=== PATIENT | male | born 1950 | race Hispanic/Latino ===

== ENCOUNTER 2019-09-26 12:54 | Emergency (ER) | payer MEDICARE, OTHER ==
[~2019-09-26] VITALS: Ht 167.6 cm; Wt 83.9 kg
[~2019-09-26 12:54] MED LIST: BACTRIM DS TAB1 EACH PO; CIPRO500 MG PO; IBUPROFEN400 MG PO; LISINOPRIL10 MG PO; LOVASTATIN10 MG PO; TAMSULOSIN HCL0.4 MG PEG
[2019-09-26 14:33] LABS: BASOPHILS # (AUTO) 0.1 (0.0-0.1); BASOPHILS % 0.7 % (0.0-1.0); EOSINOPHILS # (AUTO) 0.2 (0.0-0.4); EOSINOPHILS % 1.3 % (0.0-6.0); HEMATOCRIT 35.4 % (38.2-49.6); HEMOGLOBIN 11.9 g/dL (14.0-18.0); LYMPHOCYTES # (AUTO) 2.3 (1.0-3.2); LYMPHOCYTES % 18.2 % (18.0-39.1); MEAN CORPUSCULAR HEMOGLOBIN 29.3 pg (28-32); MEAN CORPUSCULAR HGB CONC 33.6 g/dL (31-35); MEAN CORPUSCULAR VOLUME 87.2 fL (81-99); MONOCYTES # (AUTO) 0.9 (0.2-0.8); MONOCYTES % 6.8 % (4.4-11.3); NEUTROPHILS # (AUTO) 9.2 (2.1-6.9); NEUTROPHILS % 72.7 % (38.7-80.0); PLATELET COUNT 181 x10e3/uL (140-360); RED BLOOD COUNT 4.06 x10e6/uL (4.3-5.7); RED CELL DISTRIBUTION WIDTH 13.2 % (11.7-14.4)
--- NOTE | 2019-09-26 14:33 | Diagnostic Imaging Report ---
EXAMINATION: CHEST SINGLE (PORTABLE) INDICATION: Chest pain COMPARISON: None FINDINGS: LINES/TUBES:EKG leads overlie the chest. LUNGS:The lungs are well-inflated. No focal consolidation or pulmonary edema. PLEURA:No pleural effusion or pneumothorax. MEDIASTINUM:The cardiomediastinal silhouette appears normal in size and shape. Atherosclerotic calcifications of the thoracic aorta. BONES/SOFT TISSUES:No acute osseous injury. ABDOMEN:No free air under the diaphragm. IMPRESSION: No focal pneumonia or pulmonary edema. Signed by: Camilo Morris MD on 09/26/2019 2:30 PM
[2019-09-26 14:47] LABS: ALANINE AMINOTRANSFERASE 19 IU/L (0-55); ALBUMIN/GLOBULIN RATIO 1.4 (0.8-2.0); ALKALINE PHOSPHATASE 67 IU/L (40-150); ANION GAP 13.3 mmol/L (8-16); BLOOD UREA NITROGEN 12 mg/dL (7-26); BUN/CREATININE RATIO 16 (6-25); CARBON DIOXIDE 23 mmol/L (22-29); CHLORIDE 108 mmol/L (98-107); CREATINE KINASE 153 IU/L (30-200); CREATININE, SERUM 0.77 mg/dL (0.72-1.25); EST GLOMERULAR FILTRATION RATE > 60 ML/MIN (60-); GLUCOSE 85 mg/dL (74-118); POTASSIUM 3.3 mmol/L (3.5-5.1); SODIUM 141 mmol/L (136-145)
[2019-09-26] MEDS ORDERED: FAMOTIDINE20 MG PO (15:34)
[2019-09-26] MEDS ORDERED: OMEPRAZOLE40 MG PO (15:34)
[2019-09-26] MEDS ORDERED: MAALOX MAXIMUM355 ML PO (15:34)
[2019-09-26] MEDS ORDERED: ZOFRAN4 MG SL (15:34)
== END 2019-09-26 15:46 | disposition home or self-care (01) ==
LOC: ER 12:54
DX: R07.89 Other chest pain (principal); K21.0 Gastro-esophageal reflux disease with esophagitis; I10 Essential (primary) hypertension; E78.5 Hyperlipidemia, unspecified
CPT/HCPCS: 36415; 71045; 80053; 82550; 82553; 84484; 85025; 93005; 99284

== ENCOUNTER → 2024-12-05 | Day surgery (SDC) | payer OTHER ==
[2024-12-01 11:43] LABS: BASOPHILS # (AUTO) 0.1 (0.0-0.1); BASOPHILS % 1.7 % (0.0-1.0); EOSINOPHILS # (AUTO) 0.4 (0.0-0.4); EOSINOPHILS % 5.6 % (0.0-6.0); HEMATOCRIT 35.2 % (38.2-49.6); HEMOGLOBIN 10.5 g/dL (14.0-18.0); LYMPHOCYTES # (AUTO) 1.8 (1.0-3.2); MEAN CORPUSCULAR HEMOGLOBIN 26.8 pg (28-32); MEAN CORPUSCULAR HGB CONC 29.8 g/dL (31-35); MEAN CORPUSCULAR VOLUME 89.8 fL (81-99); MONOCYTES # (AUTO) 0.6 (0.2-0.8); MONOCYTES % 7.9 % (4.4-11.3); NEUTROPHILS # (AUTO) 4.3 (2.1-6.9); NEUTROPHILS % 59.5 % (38.7-80.0); PLATELET COUNT 255 x10e3/uL (140-360); RED BLOOD COUNT 3.92 x10e6/uL (4.3-5.7); RED CELL DISTRIBUTION WIDTH 13.5 % (11.7-14.4); WHITE BLOOD COUNT 7.17 x10e3/uL (4.8-10.8)
[~2024-12-05] MED LIST changes: +D3-5000125 MCG; +FAMOTIDINE20 MG PO; +FENTANYL CITRATE/PF 100MCG/2 ML INJ ONE; +FEROSUL325 MG PO; +HYOSCYAMINE SULFATE 0.5 MG/ML INJ ONE; +LACTATED RINGER'S 1,000 ML ONE; +LIDOCAINE HCL 2% LOCAL INJ 5 ML SDV VIAL INJ ONE; +MAALOX MAXIMUM355 ML PO; +OMEPRAZOLE40 MG PO; +PROPOFOL IV EMULSION 50 ML IV ONE; +ZOFRAN4 MG SL
[2024-12-05 12:32] VITALS: TEMP 98.1
[2024-12-05 12:45] VITALS: BP 120/87; PULSE 65; RESP 16; O2SAT 98
== END | disposition home or self-care (01) ==
LOC: OR 09:43
PROVIDERS: ATTEND Internal Medicine Gastroenterology
DX: K21.9 Gastro-esophageal reflux disease without esophagitis (principal); D12.3 Benign neoplasm of transverse colon; K31.7 Polyp of stomach and duodenum; K29.70 Gastritis, unspecified, without bleeding; K31.89 Other diseases of stomach and duodenum; K20.90 Esophagitis, unspecified without bleeding; K59.00 Constipation, unspecified; K64.8 Other hemorrhoids; D64.9 Anemia, unspecified; I10 Essential (primary) hypertension; E78.5 Hyperlipidemia, unspecified; F17.200 Nicotine dependence, unspecified, uncomplicated; Z01.810 Encounter for preprocedural cardiovascular examination; Z01.812 Encounter for preprocedural laboratory examination; Z79.899 Other long term (current) drug therapy
CPT/HCPCS: 36415; 43239; 45380; 45385; 85025; 88305; 88342; 93005; J1980; J2003; J2470; J2704; J3010; J7121

== ENCOUNTER → 2025-06-21 | Day surgery (SDC) | payer MEDICARE ==
[2025-06-18 12:59] LABS: BASOPHILS % 0.8 % (0.0-1.0); EOSINOPHILS % 2.7 % (0.0-6.0); LYMPHOCYTES % 15.7 % (18.0-39.1); MONOCYTES % 8.5 % (4.4-11.3); NEUTROPHILS % 72.1 % (38.7-80.0); RED CELL DISTRIBUTION WIDTH 15.4 % (11.7-14.4)
[~2025-06-21] MED LIST changes: +FLOMAX0.4 MG PO; +GLYCOPYRROLATE INJ 0.2 MG/ML VIAL ONE; -HYOSCYAMINE SULFATE 0.5 MG/ML INJ ONE; +LINZESS72 MCG; +PROPOFOL IV EMULSION 10 MG/ML 20 ML VIAL ONE; -PROPOFOL IV EMULSION 50 ML IV ONE
[2025-06-21 09:12] VITALS: TEMP 97.4
[2025-06-21 09:32] VITALS: BP 116/83; PULSE 69; RESP 18; O2SAT 95
== END | disposition home or self-care (01) ==
LOC: OR 08:05
PROVIDERS: ATTEND Internal Medicine Gastroenterology
DX: K29.50 Unspecified chronic gastritis without bleeding (principal); I10 Essential (primary) hypertension; E78.00 Pure hypercholesterolemia, unspecified; K21.9 Gastro-esophageal reflux disease without esophagitis; N40.0 Benign prostatic hyperplasia without lower urinary tract symptoms; F17.200 Nicotine dependence, unspecified, uncomplicated; Z79.899 Other long term (current) drug therapy; Z01.810 Encounter for preprocedural cardiovascular examination; Z01.812 Encounter for preprocedural laboratory examination
CPT/HCPCS: 36415; 43239; 85025; 88305; 88342; 93005; J2003; J2704; J3010; J7121; 88312